=== PATIENT | male | born 1955 | race Two or more races ===

== ENCOUNTER 2023-04-17 00:40 | Emergency (ER) | payer BC, MEDICAID ==
[~2023-04-17] VITALS: Ht 177.8 cm; Wt 85.7 kg
[2023-04-17] MEDS ORDERED: PREGABALIN 25 MG CAPSULE PO SCH (02:00)
[2023-04-17] MEDS ORDERED: KETOROLAC TROMETHAMINE INJ 30 MG/ML VIAL IM ONE (02:00)
[2023-04-17] MEDS ORDERED: PREGABALIN 25 MG CAPSULE ONE (02:12)
[2023-04-17] MEDS ORDERED: KETOROLAC TROMETHAMINE INJ 30 MG/ML VIAL ONE (02:12)
[2023-04-17] MEDS ORDERED: PREG50CA PO (02:13)
[2023-04-17 02:19] VITALS: BP 118/65; TEMP 98; O2SAT 98
== END 2023-04-17 02:19 | disposition home or self-care (01) ==
LOC: ER 00:54
DX: G62.9 Polyneuropathy, unspecified (principal); I10 Essential (primary) hypertension; E11.9 Type 2 diabetes mellitus without complications
CPT/HCPCS: 99283; 96372; J1885